=== PATIENT | male | born 1940 | race Caucasian/White ===

== ENCOUNTER → 2017-08-18 | Outpatient (CLI) | payer OTHER ==
[~2017-08-18] MED LIST: AMLODIPINE BESY10 MG PO; AZELASTINE137 MCG/0. NASAL; DIOVAN 80 MG TA80 M1 PO; FLONASE 0.05%50 MCG NASAL; IBUPROFEN 200200 M1 PO; MEDROLDOSEPACK PO; MOBIC15 MG PO; NEURONTIN 300300 M1 PO; SYNTHROID50 MCG PO; TRAMADOL 50 MG50 MG PO
== END ==
LOC: M.RAD 11:44
DX: M47.896 Other spondylosis, lumbar region (principal); M16.0 Bilateral primary osteoarthritis of hip; R10.30 Lower abdominal pain, unspecified

== ENCOUNTER → 2017-09-04 | Outpatient (CLI) | payer OTHER ==
--- NOTE | 2017-09-17 15:40 | PAINCON ---
[address] [address] PAIN MANAGEMENT CONSULTATION Name: STANFORD HUGHES Room: [facility] [place] SADA KimEulalia#: [id number] Admission: 09/04/17 Attend Phys: Shree Maddox MD Discharge: Date of : 40 Report #: [id number] THIS REPORT FOR: //name// CC: Raman Maddox DATE OF SERVICE: 09/04/2017 CHIEF COMPLAINT: Bilateral low back pain. HISTORY OF PRESENT ILLNESS: The patient is a 77-year-old gentleman who has been referred to the Pain Clinic for evaluation of severe pain in his back and down on both sides. Also, feels that he has had some pain in the groin area. He finds that his pain is a 9/9 on most occasions. Notes that the pain decreases to an 8/9 when he is taking medications. Notes the pain is worse when the pain medicine wears off. Notes that the pain is described as constant and sharp. He had an MRI of his back. He was told that he has some bulging disk. I did note some sudden onset of this pain. He has been taking tramadol. He also used Elavil, but this has caused some upsets to his stomach. He feels that the pain is exacerbated with activity, walking, sitting, standing, climbing stairs going from a sitting and standing position as well as lifting and bending. Denies any bowel or bladder problems. Denies having back surgery in the past. ALLERGIES: No known drug allergies. CURRENT MEDICATIONS: Amlodipine 10 mg 1 p.o. daily, Azelastine 137 mcg spray pump, Flonase nasal spray 0.05%, ibuprofen 200 mg 4 tabs q.6h. p.r.n., Synthroid 50 mcg daily, tramadol 50 mg q.6h. p.r.n., and Diovan 80 mg. PAST MEDICAL HISTORY: 1. Low back pain with sciatica. 2. Hypothyroidism. 3. Hypertension. PAST SURGICAL HISTORY: Appendectomy 1959, cataract surgery 05/2008 and 06/2015. SOCIAL HISTORY: He is retired. Denies use of tobacco and denies use of alcoholic beverages. REVIEW OF SYSTEMS: Questionnaire indicates the patient wears glasses. Awakens to urinate at night, change in force or straining when urination, thyroid disease. Otherwise, unremarkable. LABORATORY DATA: 1. CT pelvis with contrast dated 08/25/2017 reveals divert[place] [address] PAIN MANAGEMENT CONSULTATION Name: LETAALMITASTANFORD Room: [facility]#: [id number] Admission: 09/04/17 Attend Phys: Shree Maddox MD Discharge: Date of : 40 Report #: [id number] findings of diverticulitis. 2. Prostate gland enlargement, elevating the bladder base. Volume of the prostate gland 62 cm. 3. 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 4. Lumbar degenerative disk changes. Degenerative joint changes, bilateral hips. MRI of the lumbar spine dated 08/22/2017 reveals: 1. L2-L3. Mild loss of disk height identified with small diffuse posterior disk bulge laterally with recesses, which are partially effaced. Both foramen are approximately mildly to moderately narrowed. The thecal sac 1.2 cm AP. 2. L3-L4. Severe degenerative loss of disk height identified, particularly along the right side of the disk space. Juyhhtcs-sk-raumux bilateral foraminal narrowing identified including contributions from degenerative facet osteophytes on the right. Thecal sac 1.0 cm AP. 3. L4-L5. Qlmxpguz-ux-ryqxxq narrowing of the left half of the disk space identified. Small diffuse posterior disk bulge identified. Severe left foraminal narrowing and usvv-xy-nwbmteyy right foraminal narrowing identified. Bulky degenerative facet changes are present. The thecal sac 1.0 cm AP. 4. L5-S1. Disk height is maintained. A gxskb-pj-uvbgfmcv diffuse posterior disk bulge and bulky ligamentum flavum thickening and facet hypertrophy with degenerative changes identified. Severe left and moderate right foraminal narrowing identified. Thecal sac 1.1 cm AP. X-ray of the lumbar spine dated 08/18/2017 reveals moderate spondylosis is present with disk space narrowing at L3-L4. There is 4-mm retrolisthesis of L3 and L4. No acute fracture is seen. There is mild posterior facet degenerative changes along with levoscoliotic curvature, sacrum appears normal. X-ray of the hip and bilateral pelvis dated 08/18/2017 reveals pelvic pain, bilateral groin pain x 2-3 weeks. FINDINGS: No acute bony abnormality. The hip joints are maintained bilaterally. There are mild hip joint degenerative changes with some central joint space narrowing. There is no fracture or acute bony process. Symphysis pubis and SI joints appeared normal. The lower lumbar spine degenerative changes are noted. PAIN CLINIC ASSESSMENT: 1. The patient states that he is not being treated for rheumatoid arthritis or osteoarthritis. 2. VITAL SIGNS: Blood pressure 137/67, heart rate 74, respiratory rate 19, room air saturation 97%, temperature 98.4. Height 5 feet 11 inches, weight 200 pounds, BMI is 28. 3. Pain intensity 9/10. 4. Fall risk. The patient has not fallen in the last 3 months. 5. Blood thinner. The patient is not on a blood thinner. 6. History of hypertension. The patient is being [place] [address] PAIN MANAGEMENT CONSULTATION Name: STANFORD HUGHES Room: [facility]#: [id number] Admission: 09/04/17 Attend Phys: Shree Maddox MD Discharge: Date of : 40 Report #: [id number] 7. Opioid therapy greater than 6 weeks. The patient is not on opioid therapy greater than 6 weeks. 8. Risk assessment tool. 9. Functional assessment tool 49/70 which indicates significant problems with pain when activities of daily living. 10. Recreational drug use. The patient denies recreational drug use. 11. Tobacco: The patient denies use of tobacco. 12. Alcohol. The patient denies use of alcoholic beverages. PHYSICAL EXAMINATION: GENERAL: The patient is a well-developed, well-nourished male. HEENT: Normocephalic and atraumatic. Extraocular eye muscles intact. Hearing within normal limits. Moist buccal membranes. ORIENTATION: He is alert and oriented x 3. Affect is appropriate. Appears his stated age. NECK: Without adenopathy. Good range of motion without adenopathy or bruits. CARDIOVASCULAR: Normal rate and rhythm. PULMONARY: No respiratory distress. LUNGS: Clear to auscultation. ABDOMEN: Nontender without masses. MUSCULOSKELETAL: Upper muscle strength appears within normal limits +5/5 for major muscle strength in the upper extremities. Musculoskeletal without significant lordosis, scoliosis or kyphosis. Lower extremity muscle strength is judged to be 5/5 for the major muscle groups in the lower extremity. The patient has pain and discomfort which is radiating down the posterior portion of his legs bilaterally. Does complain of some discomfort in the groin area. SKIN: Warm and dry. IMPRESSION: 1. Bilateral low back pain with pain radiating down into the legs, sciatic area bilaterally. 2. Hypertension. 3. Hypothyroidism. 4. Groin pain. RECOMMENDATIONS: We discussed treatment options with the patient. He continues to have pain and discomfort in the low back area down into his legs. He denies any recent trauma. He has not had back surgery. He rates his pain as a 9/10. I think at this point it would be reasonable to consider a Medrol Dosepak. He will take the 21 tablets as prescribed. He will also try Meloxicam 10 mg 1 p.o. daily. He will not take ibuprofen during this period of time. We explained the concurrent use of the 2 nonsteroidal anti-inflammatory medications could be problematic to his stomach. He will follow up in the near future. If his pain continues to be problematic, we will then consider an epidural steroid injection in the lower lumbar area to help with pain and discomfort, which is radiating down to his legs. The patient does have some pain in the [place] [address] PAIN MANAGEMENT CONSULTATION Name: STANFORD HUGHES Room: [facility] [place] [facility] Bhatt#: [id number] Admission: 09/04/17 Attend Phys: Shree Maddox MD Discharge: Date of : 40 Report #: [id number] that he has been evaluated and it does not seem to be as a result of hernias. We reviewed the patient's MRI with him. We explained that groin pain if it is coming from the low back area would generally be in the T1-T12 distribution for what he is experiencing. He does not feel this groin pain. We will have the patient give us a call if he has any problems with his current medical regimen. We would like to thank you for letting us participate in his care. We hope he continues to improve. <ELECTRONICALLY SIGNED> By: Shree Maddox MD 09/17/17 1540 [id number] [id number]. Teddy Maddox MD /nt
== END ==
LOC: M.PC 01:19
DX: I10 Essential (primary) hypertension (principal); M54.42 Lumbago with sciatica, left side; M54.41 Lumbago with sciatica, right side; E03.9 Hypothyroidism, unspecified; R10.30 Lower abdominal pain, unspecified

== ENCOUNTER → 2017-09-23 | Outpatient (CLI) | payer OTHER ==
--- NOTE | 2017-09-30 08:16 | PAINCON ---
[address] [address] PAIN MANAGEMENT CONSULTATION Name: STANFORD HUGHES Room: [facility] SADA TejadaGagandeep#: [id number] Admission: 09/23/17 Attend Phys: Shree Maddox MD Discharge: Date of : 40 Report #: [id number] THIS REPORT FOR: //name// CC: Raman Maddox DATE OF SERVICE: 09/23/2017 FOLLOWUP COMPLAINT: The pain is slowly getting better, but is still there. FOLLOWUP HISTORY: The patient is a 77-year-old gentleman who has been seen in the Pain Clinic because of pain in the groin area bilaterally as well as some pain in the area down into his legs. The groin area is the most problematic area. He felt that the initial use of a Medrol Dosepak improved his pain. It was a 02/15 initially. He called the Pain Clinic. He was given an additional Medrol Dosepak and now, he has noted some additional improvement in his pain. Less intense pain. Rates it as a 5-6 at this juncture. He had no complication from the procedures. He was given a Mobic prescription. He is not sure that the Mobic was very effective. He has been using ibuprofen. He takes about 4 ibuprofen p.r.n. He has with concern that this might cause some long-term problems and irritation of his stomach, but that is the medication that is most effective when helping to decrease his pain. The use of the steroid medications, has not caused any complications. Overall, he has noted some improvement. He has some pain and discomfort in his right hand. There is some swelling in this area. He is not sure whether or not it is arthritis. He denies any trauma to this area, but over the last few weeks, he has noticed some swelling. He has noted improvement in that with use of the Medrol Dosepak. He is not sure whether or not he has arthritis. He doubts that because he is not sure that it would affect only one joint, primarily the right hand without significant numbness or tingling down into his fingers. It is primarily one of swelling that he has noted. 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 ALLERGIES: No known drug allergies. MEDICATIONS: Amlodipine 10 mg 1 p.o. daily, Azelastine 137 mg spray, Flonase 0.05%, ibuprofen 200 mg 4 tablets q. 6 hours p.r.n. pain, Synthroid 50 mcg daily, tramadol 50 mg q. 6 hours p.r.n., Diovan 80 mg. PAIN CLINIC ASSESSMENT: 1. Osteoarthritis. The patient is not sure that he has been not being treated for osteoarthritis. He has not been treated for arthritis. 2. Height 5 feet 11 inches, weight 200 pounds, BMI is 27[place] [address] PAIN MANAGEMENT CONSULTATION Name: STANFORD HUGHES Room: [facility]#: [id number] Admission: 09/23/17 Attend Phys: Shree Maddox MD Discharge: Date of : 40 Report #: [id number] 3. Vital signs: Blood pressure 124/63, respiratory rate is 16, heart rate 71, saturation 96%, temperature 97.7. 4. Pain intensity 5-6/7. 5. Fall risk. The patient has not fallen in the last 3 months. 6. Blood thinner. The patient is not on a blood thinner. 7. History of hypertension. The patient is being treated for hypertension. 8. Opioid therapy greater than 6 weeks. The patient is not on opioid therapy or medicine on a chronic basis. 9. Risk assessment tool. 10. Functional assessment tool. 11. Recreational drug use. The patient denies use of recreational drugs. 12. Tobacco: The patient denies use of tobacco. 13. Alcohol: The patient denies use of alcoholic beverages. PHYSICAL EXAMINATION: GENERAL: The patient is a well-developed, well-nourished white male. Appears his stated age. He is alert and oriented x 3. Affect is appropriate. Speech is smooth. HEENT: Normocephalic, atraumatic. Extraocular eye muscles intact. Sclerae is nonicteric. Hearing is within normal limits. Mucous membranes are moist. NECK: Without adenopathy, JVD or bruits. CHEST: Clear to auscultation. HEART: Regular rate and rhythm. ABDOMEN: Nontender. MUSCULOSKELETAL: Judged to be 5/5 for the upper muscle groups with symmetry. Lower extremity muscle mass judged to be 5/5 for muscle strength and symmetry. The patient has some discomfort in the area of the groin bilaterally. This has decreased somewhat since we initially saw him from /10 to 5/10. SKIN: Warm. IMPRESSION: 1. Bilateral low back pain with radiation down into the legs. Some sciatic pain bilaterally. Pain in the groin area bilaterally. 2. Hypertension. 3. Hypothyroidism. 4. Groin pain. RECOMMENDATIONS: We discussed treatment options with the patient. Overall, he has noted that with the previous 2 Medrol Dosepak that his pain improved. It is down from a 9/10 to about a 5/10 at this juncture. We will try and 1 more episode of a Medrol Dosepak. Again, the patient does not have significant pathology in his back in the groin area or the lumbar area. So, we will try again this generalized approach. He found that the Medrol Dosepaks were helpful. He will try this again for another week. He has been given gabapentin 300 mg 1 p.o. t.i.d. He will titrate this dose. Hopefully, this will help him get over the more problematic groin pain and that in the [place], [place] [address] PAIN MANAGEMENT CONSULTATION Name: STANFORD HUGHES Room: [facility]#: [id number] Admission: 09/23/17 Attend Phys: Shree Maddox MD Discharge: Date of : 40 Report #: [id number] able to stop this medication with the patient finding resolution of his pain. We would like to thank you for letting us participate in his care. We hope he continues to improve. <ELECTRONICALLY SIGNED> By: Shree Maddox MD 09/30/17 0816 [id number] 2049N. Teddy Maddox MD /HUBER
== END ==
LOC: M.PC 01:28
DX: I10 Essential (primary) hypertension (principal); E03.9 Hypothyroidism, unspecified; M54.42 Lumbago with sciatica, left side; M54.41 Lumbago with sciatica, right side; M19.90 Unspecified osteoarthritis, unspecified site

== ENCOUNTER → 2017-10-30 | Outpatient (CLI) | payer OTHER | LOC: M.LAB 08:13 | DX: M25.531 Pain in right wrist (principal); M65.9 Synovitis and tenosynovitis, unspecified ==

== ENCOUNTER → 2018-07-21 | Outpatient (CLI) | payer OTHER | LOC: M.RAD 14:35 | DX: S42.214A Unspecified nondisplaced fracture of surgical neck of right humerus, initial encounter for closed fracture (principal); S43.031A Inferior subluxation of right humerus, initial encounter; M19.011 Primary osteoarthritis, right shoulder; M25.711 Osteophyte, right shoulder; X58.XXXA Exposure to other specified factors, initial encounter; Y93.89 Activity, other specified; Y92.89 Other specified places as the place of occurrence of the external cause; Y99.8 Other external cause status ==